=== PATIENT | female | born 1955 | race Hispanic/Latino ===

== ENCOUNTER 2020-12-23 07:45 | Day surgery (SDC) | payer MEDICARE ==
[~2020-12-23] VITALS: Ht 157.5 cm; Wt 88.5 kg
[~2020-12-23 07:45] MED LIST: 0.9%NACL 1000ML 1,000 ML IV ONE; ALEN70TA80 PO; CITA10TA7 PO; ENAL20TA18 PO; GABA-529 PO; HYDR25TA PO; INSU100I35 SQ; INSU3INS5 SQ; METF-444 PO; MIRT-93 PO; SIMV5TAB58 PO; SITA100T12 PO; SOLI10TA PO
[2020-12-23 08:49] VITALS: BP 139/88
[2020-12-23] MEDS ORDERED: PROPOFOL 10 MG/ML 20ML VIAL IV ONE ×2 (12:15)
[2020-12-23 12:35] VITALS: BP 96/57
[2020-12-23 12:45] VITALS: BP 123/52
[2020-12-23 13:00] VITALS: BP 128/54
== END 2020-12-23 13:00 | disposition home or self-care (01) ==
LOC: DAH 07:45 → SUH 07:45
PROVIDERS: ATTEND Internal Medicine
DX: K86.2 Cyst of pancreas (principal); Z20.822 Contact with and (suspected) exposure to COVID-19; K21.00 Gastro-esophageal reflux disease with esophagitis, without bleeding; I10 Essential (primary) hypertension; E11.9 Type 2 diabetes mellitus without complications; K44.9 Diaphragmatic hernia without obstruction or gangrene; F41.9 Anxiety disorder, unspecified; F32.9 Major depressive disorder, single episode, unspecified; M19.90 Unspecified osteoarthritis, unspecified site; M81.0 Age-related osteoporosis without current pathological fracture; Z91.048 Other nonmedicinal substance allergy status; Z85.038 Personal history of other malignant neoplasm of large intestine; Z79.899 Other long term (current) drug therapy; Z98.890 Other specified postprocedural states; Z98.891 History of uterine scar from previous surgery; Z90.49 Acquired absence of other specified parts of digestive tract; Z98.49 Cataract extraction status, unspecified eye
CPT/HCPCS: 43237; 82948; 93005; A4215 ×2; A4221; A4222; A4223; A4606; A4620; A4657; A4663; J2704 ×2; J7030

== ENCOUNTER 2023-08-20 12:26 | Emergency (ER) | payer MEDICARE ==
[~2023-08-20] VITALS: Ht 160 cm; Wt 88.5 kg
[~2023-08-20 12:26] MED LIST changes: -0.9%NACL 1000ML 1,000 ML IV ONE; -CITA10TA7 PO; +CITA10TA89 PO; +ENAL-91 PO; -ENAL20TA18 PO
[2023-08-20] MEDS: 0.9%NACL 1000ML 1,000 ML IV ONE (14:05)
[2023-08-20] MEDS: MORPHINE 4 MG SYG IVP ONE (14:05)
[2023-08-20] MEDS: DIAZEPAM 5 MG/ML 2 ML SYG IVP ONE (14:09)
[2023-08-20] MEDS ORDERED: ACET-2079 PO (15:20)
[2023-08-20] MEDS ORDERED: PREG25 PO (15:20)
[2023-08-20 15:44] VITALS: BP 110/52; PULSE 70; RESP 14; O2SAT 97
== END 2023-08-20 16:05 | disposition home or self-care (01) ==
LOC: EDH 12:26
DX: S83.203A Other tear of unspecified meniscus, current injury, right knee, initial encounter (principal); M54.41 Lumbago with sciatica, right side; I10 Essential (primary) hypertension; E11.9 Type 2 diabetes mellitus without complications; M19.90 Unspecified osteoarthritis, unspecified site; Z79.84 Long term (current) use of oral hypoglycemic drugs; Z79.899 Other long term (current) drug therapy; Z98.890 Other specified postprocedural states; Z88.8 Allergy status to other drugs, medicaments and biological substances; X58.XXXA Exposure to other specified factors, initial encounter; Y93.89 Activity, other specified; Y92.89 Other specified places as the place of occurrence of the external cause; Y99.8 Other external cause status
CPT/HCPCS: 99284; 96374; 96361; 96375; J7030; J3360; J2270